=== PATIENT | male | born 1960 | race Caucasian/White ===

== ENCOUNTER 2019-11-27 23:37 | Emergency (ER) | payer MEDICAID ==
[~2019-11-27] VITALS: Ht 182.9 cm; Wt 125.6 kg
[2019-11-27] MEDS ORDERED: metformin PO (23:56)
[2019-11-27] MEDS ORDERED: carvedilol PO (23:56)
[2019-11-27] MEDS ORDERED: PANT40TA49 PO (23:56)
[2019-11-27] MEDS ORDERED: ASPI-1169 PO (23:56)
[2019-11-27] MEDS ORDERED: glipizide PO (23:56)
[2019-11-27] MEDS ORDERED: FURO-152 PO (23:56)
[2019-11-27] MEDS ORDERED: spironolactone PO (23:56)
[2019-11-27] MEDS: MORPHINE SULFATE 4 MG/1 ML DISP.SYRIN IM ONE (23:59)
[2019-11-28] MEDS ORDERED: MORPHINE SULFATE 4 MG/1 ML DISP.SYRIN ONE (00:01)
[2019-11-28 00:33] LABS: BASOPHILS # (AUTO) 0.1 K/uL (0.0-8.0); BASOPHILS % (AUTO) 1.2 % (0.0-2.0); EOSINOPHILS # (AUTO) 1.1 K/uL (0.0-0.7); EOSINOPHILS % (AUTO) 12.2 % (0.0-7.0); HEMATOCRIT 31.9 % (36.7-47.1); HEMOGLOBIN 10.2 g/dL (12.5-16.3); LYMPHOCYTES # (AUTO) 1.3 K/uL (20.0-40.0); LYMPHOCYTES % (AUTO) 14.5 % (20.5-51.5); MEAN CORPUSCULAR HEMOGLOBIN 25.8 uug (23.8-33.4); MEAN CORPUSCULAR HGB CONC 32 g/dL (32.5-36.3); MEAN CORPUSCULAR VOLUME 80.4 fL (73.0-96.2); MONOCYTES # (AUTO) 1.1 K/uL (2.0-10.0); MONOCYTES % (AUTO) 12.3 % (0.0-11.0); NEUTROPHILS # (AUTO) 5.3 K/uL (1.8-8.9); NEUTROPHILS % (AUTO) 59.8 % (38.5-71.5); PLATELET COUNT (AUTO) 84 K/uL (152-348); RED BLOOD CELL COUNT(AUTO) 3.97 MIL/uL (4.06-5.63); WHITE BLOOD COUNT (AUTO) 8.8 K/uL (3.6-10.2)
[2019-11-28 00:39] LABS: BILIRUBIN,DIRECT 0.2 mg/dL (0.0-0.2); BILIRUBIN,TOTAL 0.5 mg/dL (0.2-1.0); CREATININE 1.5 mg/dL (0.6-1.3); POTASSIUM 4.9 mmol/L (3.5-5.1); TOTAL PROTEIN, SERUM 9.4 g/dL (6.4-8.2)
--- NOTE | 2019-11-28 00:46 | NUR ---
Patient discharged to home in stable condition. Written and verbal after care instructions given. Patient verbalizes understanding of instructions. Stressed follow up or return to ER for worsening s/s. Ambulated from ER with stable gait. All belongings with patient . Patient will be driven home by significant other.
[2019-11-28 00:47] VITALS: BP 141/81
[2019-11-28 16:00] LABS: EOSINOPHILS % (MANUAL) 8 % (0-8); LYMPHOCYTES % (MANUAL) 15 % (20-40); MONOCYTES % (MANUAL) 9 % (2-10); NEUTROPHILS % (MANUAL) 68 % (42-75)
== END 2019-11-28 00:47 | disposition home or self-care (01) ==
LOC: ER 23:43
DX: R60.0 Localized edema (principal); I50.9 Heart failure, unspecified; Z79.899 Other long term (current) drug therapy; Z79.82 Long term (current) use of aspirin; R77.8 Other specified abnormalities of plasma proteins; E11.9 Type 2 diabetes mellitus without complications; Z79.84 Long term (current) use of oral hypoglycemic drugs
CPT/HCPCS: 36415; 71045; 80048; 80076; 83880; 84484; 85025; 93005; 96372; 99285; J2270; 70030-TC

== ENCOUNTER 2019-12-17 07:11 | Inpatient (IN) | payer MEDICAID ==
[~2019-12-17] VITALS: Ht 182.9 cm; Wt 75.3 kg
[~2019-12-17 07:11] MED LIST: ASPI-1169 PO; FURO-152 PO; PANT40TA49 PO; carvedilol PO; glipizide PO; metformin PO; spironolactone PO
--- NOTE | 2019-12-17 07:25 | NUR ---
Dr. Soto at bedside for MSE
--- NOTE | 2019-12-17 07:30 | NUR ---
Patient ambulated with steady gait. A&O x4. c/o SOB x2 wks. Patient breathing even and unlabored. no cough noted. Patient states he had a PICC line placed recently and states he was at a hospital recently (patient does not recall which hospital) and was being treated for SOB. Speech is clear and able to make needs known / follow commands. Denies any CP but states "I am in pain all over".
[2019-12-17] MEDS ORDERED: ALBUTEROL SULFATE 8 GM HFA.AER.AD IH PRN (07:45)
[2019-12-17] MEDS ORDERED: NITROGLYCERIN 0.4 MG/TAB BOTTLE SL ONE ×2 (07:45→07:47)
[2019-12-17] MEDS ORDERED: ASPIRIN 325 MG TABLET PO ONE (07:45)
[2019-12-17] MEDS ORDERED: methylPREDNISolone SOD SUCC 125 MG/2 ML VIAL IV ONE (07:45)
[2019-12-17] MEDS ORDERED: ASPIRIN 325 MG TABLET ONE (07:47)
[2019-12-17] MEDS ORDERED: predniSONE 50 MG TABLET ONE (07:58)
[2019-12-17] MEDS ORDERED: predniSONE 10 MG TABLET ONE (07:58)
[2019-12-17] MEDS ORDERED: predniSONE 20 MG TABLET PO ONE (08:00)
[2019-12-17 08:16] LABS: BASOPHILS # (AUTO) 0.1 K/uL (0.0-8.0)
[2019-12-17 08:24] LABS: BASOPHILS % (AUTO) 1.5 % (0.0-2.0); EOSINOPHILS % (AUTO) 12.3 % (0.0-7.0); HEMATOCRIT 28.1 % (36.7-47.1); HEMOGLOBIN 9.2 g/dL (12.5-16.3); LYMPHOCYTES % (AUTO) 12.9 % (20.5-51.5); MEAN CORPUSCULAR HEMOGLOBIN 26.2 uug (23.8-33.4); MEAN CORPUSCULAR HGB CONC 33 g/dL (32.5-36.3); MEAN CORPUSCULAR VOLUME 79.6 fL (73.0-96.2); MONOCYTES % (AUTO) 12.5 % (0.0-11.0); NEUTROPHILS # (AUTO) 4.8 K/uL (1.8-8.9); NEUTROPHILS % (AUTO) 60.8 % (38.5-71.5); PLATELET COUNT (AUTO) 60 K/uL (152-348); RED BLOOD CELL COUNT(AUTO) 3.53 MIL/uL (4.06-5.63); WHITE BLOOD COUNT (AUTO) 7.9 K/uL (3.6-10.2)
[2019-12-17 08:26] LABS: CREATININE 1.1 mg/dL (0.6-1.3); POTASSIUM 5.3 mmol/L (3.5-5.1)
[2019-12-17 08:36] LABS: ETHANOL < 3 MG/DL (0-0)
[2019-12-17 08:42] LABS: BILIRUBIN,DIRECT 0.3 mg/dL (0.0-0.2); BILIRUBIN,TOTAL 0.8 mg/dL (0.2-1.0); TOTAL PROTEIN, SERUM 8.7 g/dL (6.4-8.2)
[2019-12-17 08:46] LABS: *BILIRUBIN,URIN NEGATIVE (NEGATIVE); *BLOOD, URINE NEGATIVE (NEGATIVE); *CLARITY,URINE CLEAR (CLEAR); *COLOR,URINE YELLOW (YELLOW); *KETONES,URINE NEGATIVE (NEGATIVE); *UROBILINOGEN,URINE >=8.0 E.U./dl (NORMAL); LEUKOCYTE ESTERASE ,URINE NEGATIVE (NEGATIVE); NITRITE, URINE NEGATIVE (NEGATIVE); PH,URINE 7.5 (5.0-8.0); UGLUCOSE NEGATIVE (NEGATIVE)
[2019-12-17 08:57] LABS: *AMPHETAMINE, URINE NEGATIVE (NEGATIVE); *CANNABINOID, URINE NEGATIVE (NEGATIVE); *COCCAINE, URINE NEGATIVE (NEGATIVE); *OPIATE, URINE POSITIVE (NEGATIVE); *PHENCYCLIDINE SCREEN,URINE NEGATIVE (NEGATIVE)
[2019-12-17] MEDS ORDERED: FUROSEMIDE 40 MG TABLET PO SCH (09:00)
[2019-12-17] MEDS ORDERED: ENOXAPARIN SODIUM 100 MG/ML DISP.SYRIN SQ ONE ×2 (09:00→09:34)
[2019-12-17] MEDS ORDERED: CLOPIDOGREL 75 MG TABLET PO ONE (09:00)
--- NOTE | 2019-12-17 09:06 | NUR ---
Attempted x3 to place a HL on pt, unable to, made aware.
--- NOTE | 2019-12-17 09:20 | NUR ---
Spoke to Jennifer, nursing sup, she was not able to get a call back from PICC line nurses. Dr Soto made aware.
[2019-12-17] MEDS ORDERED: IOHEXOL 350 100 ML INFUS..BTL ONE (09:23)
[2019-12-17] MEDS ORDERED: SWABABLE VALVE TRANSFER SET EA MC ONE (09:23)
[2019-12-17] MEDS ORDERED: IV NORMAL SALINE 250 ML IV ONE (09:23)
--- NOTE | 2019-12-17 09:23 | NUR ---
U/S tech at the bedside.
[2019-12-17] MEDS ORDERED: FUROSEMIDE 20 MG TABLET ONE (09:32)
[2019-12-17] MEDS ORDERED: CLOPIDOGREL 75 MG TABLET ONE (09:33)
[2019-12-17] MEDS ORDERED: ENOXAPARIN SODIUM 30 MG/0.3 ML DISP.SYRIN ONE ×2 (09:34→09:36)
[2019-12-17 10:00] LABS: BACTERIA,URINE NONE SEEN /HPF (NONE SEEN); RBC,URINE 0-3 /HPF (0-3); SQUAMOUS EPITHELIAL CELL,UR FEW /HPF (NONE SEEN); WBC,URINE 0-3 /HPF (0-3)
[2019-12-17] MEDS ORDERED: TAMS-3 PO (10:33)
[2019-12-17] MEDS ORDERED: FAMO-132 PO (10:33)
[2019-12-17] MEDS ORDERED: HYDR-4384 PO (10:33)
[2019-12-17] MEDS ORDERED: THIA100T70 PO (10:33)
[2019-12-17] MEDS ORDERED: MULT-594 PO (10:33)
[2019-12-17] MEDS ORDERED: EPIN0.3A4 IM (10:33)
[2019-12-17] MEDS ORDERED: GABA600T12 PO (10:33)
--- NOTE | 2019-12-17 10:35 | NUR ---
CALLED [facility] FOR PANEL CALL
[2019-12-17] MEDS ORDERED: QUET50TA PO (10:44)
[2019-12-17] MEDS ORDERED: ONDANSETRON 4 MG/2 ML VIAL IV PRN (11:00)
[2019-12-17] MEDS ORDERED: MAGNESIUM HYDROXIDE 30 ML LIQUID UDC PO PRN (11:00)
[2019-12-17] MEDS ORDERED: Z GUARD REMEDY PASTE 57 GM TUBE TOP PRN (11:00)
[2019-12-17] MEDS ORDERED: ACETAMINOPHEN 325 MG TABLET PO PRN (11:00)
--- NOTE | 2019-12-17 11:03 | NUR ---
Pt signed consent for IV contrasted CTA, placed in the chart.
--- NOTE | 2019-12-17 11:04 | NUR ---
Pt out of ER for CT.
--- NOTE | 2019-12-17 11:10 | NUR ---
Pt. admitted to Telemetry , under care of Dr. Felix Belongs List completed
--- NOTE | 2019-12-17 12:06 | NUR ---
Report given to Katherine CORREA
--- NOTE | 2019-12-17 13:15 | NUR ---
RECEIVED PATIENT AWAKE, ALERT AND ORIENTED X 4 FROM THE ED VIA [employer]. SR ON MONITOR - 70'S HR. COMPLAINS OF SOB AND OVER ALL BODY PAIN. ON 2L NC, 97-98% SATURATION. PAIN MEDICATION GIVEN ORDERED. WILL NOTIFY RT FOR PRN BREATHING TREATMENT. 3 LUMEN PICC LINE ON LEFT UPPER ARM, FLUSHED AND PATENT. SAFETY PRECAUTIONS IN PLACE. MD NOTIFIED OF PATIENT ARRIVAL. ENCOURAGE FLUID RESTRICTION S/T HYPONATREMIA AND CHF EXACERBATION. WILL CONTINUE TO MONITOR.
[2019-12-17 13:50] VITALS: BP 128/81
[2019-12-17] MEDS ORDERED: AZITHROMYCIN 250 MG TABLET PO ONE (14:00)
[2019-12-17] MEDS: HYDROCODONE/APAP 5-325MG TABLET PO PRN ×2 (14:07→21:17)
[2019-12-17] MEDS: ALBUTEROL SULFATE 2.5 MG/3 ML NEBU NEB PRN ×3 (14:47→23:18)
[2019-12-17] MEDS: IPRATROPIUM BROMIDE 0.5 MG/2.5 ML NEBU NEB PRN ×3 (14:47→23:18)
--- NOTE | 2019-12-17 15:15 | NUR ---
NOTIFIED DR. GLASGOW THAT PATIENT IS COMPLAINING OF CHEST PAIN AND SOB. LET HIM KNOW THAT NORCO WAS GIVEN ORDERED AND THAT A BREATHING TREATMENT IS TO BE GIVEN. NO ORDERS GIVEN.
[2019-12-17 15:25] LABS: EOSINOPHILS % (MANUAL) 7 % (0-8); LYMPHOCYTES % (MANUAL) 12 % (20-40); MONOCYTES % (MANUAL) 8 % (2-10); NEUTROPHILS % (MANUAL) 73 % (42-75)
[2019-12-17 16:00] VITALS: BP 137/75
[2019-12-17] MEDS ORDERED: FAMOTIDINE 20 MG TABLET PO SCH (17:00)
[2019-12-17] MEDS: METFORMIN HCL 500 MG TABLET PO SCH (17:09)
[2019-12-17] MEDS: GABAPENTIN 300 MG CAPSULE PO SCH (17:09)
[2019-12-17] MEDS: glipiZIDE 10 MG TABLET PO SCH (17:09)
[2019-12-17] MEDS: CARVEDILOL 25 MG TABLET PO SCH (17:15)
--- NOTE | 2019-12-17 19:43 | NUR ---
Doctor was notified of Troponin level. Levels are trending down. Orders to continue to monitor.
--- NOTE | 2019-12-17 19:45 | NUR ---
MESSAGED DR GLASGOW ABOUT ELEVATED TROPONIN LEVEL. ENDORSED TO CHEMOTHERAPIST TO FOLLOW UP.
[2019-12-17 20:02] VITALS: BP 141/74
--- NOTE | 2019-12-17 20:26 | NUR ---
Patient has platelets of 60. Pharmacy called to confirm Lovenox 120mg order and stated to call doctor. Doctor Melyssan notified and stated okay to give.
--- NOTE | 2019-12-17 21:00 | NUR ---
Patient awake and alert in bed. No s/s of respiratory distress. On 2L/min. Patient reported chest pain when coughing 7/10 and given [place] at 2117. Patient tolerated medication well. Bed is locked and in lowest position. Will continue to monitor.
[2019-12-17] MEDS: ENOXAPARIN SODIUM 60 MG/0.6 ML DISP.SYRIN SQ SCH (21:16)
[2019-12-17] MEDS: QUETIAPINE FUMARATE 25 MG TABLET PO PRN (22:54)
--- NOTE | 2019-12-17 22:54 | NUR ---
Per patient's request, Seroquel was given to help patient sleep. Patient tolerated medication well.
[2019-12-18 00:07] VITALS: BP 136/47
[2019-12-18] MEDS: IPRATROPIUM BROMIDE 0.5 MG/2.5 ML NEBU NEB PRN ×3 (03:28→10:57)
[2019-12-18] MEDS: ALBUTEROL SULFATE 2.5 MG/3 ML NEBU NEB PRN ×3 (03:28→10:57)
[2019-12-18 04:00] VITALS: BP 137/75
--- NOTE | 2019-12-18 05:59 | NUR ---
Patient slept throughout the night with no complaints. No s/s of pain throughout the night. On 2L NC. Breathing tx given Q4H but patient still has a cough. Bed is locked and in lowest position. Side rails up X 2. Will endorse to day shift.
[2019-12-18] MEDS: HYDROCODONE/APAP 5-325MG TABLET PO PRN ×2 (06:23→16:22)
--- NOTE | 2019-12-18 06:30 | NUR ---
Attempted to clean up the clutter in patient's room, he declined.
--- NOTE | 2019-12-18 07:45 | NUR ---
RECEIVED PATIENT ASLEEP IN BED, EASILY AROUSABLE, ORIENTED X 4. ON 2L NC, SATURATION WNL. CONTINENT OF B/B. ABLE TO AMBULATE TO BATHROOM. 3 LUMEN PICC ON LEFT UPPER ARM - FLUSHED AND PATENT. SAFETY PRECAUTIONS IN PLACE. WILL CONTINUE TO MONITOR.
--- NOTE | 2019-12-18 08:30 | NUR ---
PLATELET LEVEL AT 61. LOVENOX STILL GIVEN PER PUG MACHINE OPERATOR NOTES. MD NOTIFIED OF PLATELET LEVEL AND OKAY ADMINISTRATION OF LOVENOX. NO S/S OF BLEEDING NOTED AT THIS TIME.
[2019-12-18 08:44] LABS: BASOPHILS # (AUTO) 0.1 K/uL (0.0-8.0); BASOPHILS % (AUTO) 0.7 % (0.0-2.0); EOSINOPHILS # (AUTO) 0.2 K/uL (0.0-0.7); EOSINOPHILS % (AUTO) 2.2 % (0.0-7.0); HEMATOCRIT 27.8 % (36.7-47.1); HEMOGLOBIN 8.9 g/dL (12.5-16.3); LYMPHOCYTES # (AUTO) 1.3 K/uL (20.0-40.0); LYMPHOCYTES % (AUTO) 16.1 % (20.5-51.5); MEAN CORPUSCULAR HGB CONC 32 g/dL (32.5-36.3); MEAN CORPUSCULAR VOLUME 80.8 fL (73.0-96.2); MONOCYTES % (AUTO) 12.6 % (0.0-11.0); NEUTROPHILS # (AUTO) 5.5 K/uL (1.8-8.9); NEUTROPHILS % (AUTO) 68.4 % (38.5-71.5); PLATELET COUNT (AUTO) 61 K/uL (152-348); RED BLOOD CELL COUNT(AUTO) 3.44 MIL/uL (4.06-5.63); WHITE BLOOD COUNT (AUTO) 8.1 K/uL (3.6-10.2)
[2019-12-18 08:51] LABS: CREATININE 1.3 mg/dL (0.6-1.3); MAGNESIUM 2.3 mg/dL (1.8-2.4); PHOSPHOROUS 3.4 mg/dL (2.5-4.9); POTASSIUM 3.9 mmol/L (3.5-5.1)
[2019-12-18] MEDS ORDERED: SPIRONOLACTONE 25 MG TABLET PO SCH (09:00)
[2019-12-18] MEDS ORDERED: ASPIRIN 81 MG TAB.CHEW PO SCH (09:00)
[2019-12-18] MEDS ORDERED: methylPREDNISolone SOD SUCC 125 MG/2 ML VIAL IV SCH (09:00)
[2019-12-18] MEDS: TAMSULOSIN HCL 0.4 MG CAP.SR.24H PO SCH (09:01)
[2019-12-18] MEDS: glipiZIDE 10 MG TABLET PO SCH ×2 (09:01→17:13)
[2019-12-18] MEDS: PANTOPRAZOLE SODIUM 40 MG TABLET.DR PO SCH (09:01)
[2019-12-18] MEDS: FUROSEMIDE 40 MG/4 ML VIAL IV SCH (09:02)
[2019-12-18] MEDS: METFORMIN HCL 500 MG TABLET PO SCH ×2 (09:02→17:13)
[2019-12-18] MEDS: GABAPENTIN 300 MG CAPSULE PO SCH ×2 (09:02→16:22)
[2019-12-18] MEDS: CARVEDILOL 25 MG TABLET PO SCH ×2 (09:03→16:25)
[2019-12-18] MEDS: THIAMINE HCL 100 MG TABLET PO SCH (09:03)
[2019-12-18] MEDS: MULTIVITAMINS,THERAPEUTIC TABLET PO SCH (09:03)
[2019-12-18] MEDS: ENOXAPARIN SODIUM 60 MG/0.6 ML DISP.SYRIN SQ SCH ×2 (09:07→20:55)
[2019-12-18 11:30] VITALS: BP 121/86
[2019-12-18] MEDS ORDERED: IPRATROPIUM/ALBUTEROL SULFATE 14.7 GM INHALER INH SCH (11:30)
[2019-12-18] MEDS: IPRATROPIUM BROMIDE 0.5 MG/2.5 ML NEBU NEB SCH ×3 (11:30→19:22)
[2019-12-18] MEDS: ALBUTEROL SULFATE 2.5 MG/ 0.5 ML NEBU NEB SCH ×3 (11:30→19:21)
[2019-12-18 13:37] LABS: BAND % (MANUAL) 2 % (0-10); LYMPHOCYTES % (MANUAL) 20 % (20-40); MONOCYTES % (MANUAL) 2 % (2-10)
[2019-12-18 13:38] LABS: EOSINOPHILS % (MANUAL) 2 % (0-8); NEUTROPHILS % (MANUAL) 74 % (42-75)
[2019-12-18] MEDS: AZITHROMYCIN 250 MG TABLET PO SCH (13:42)
[2019-12-18 16:00] VITALS: BP 121/64
--- NOTE | 2019-12-18 16:47 | NUR ---
PATIENT COMPLAINING OF PAIN AND COUGHING. GIVEN NORCO PRESCRIBED. PAGED DR JEAN.
--- NOTE | 2019-12-18 18:24 | NUR ---
PATIENT COMPLAINING OF PAIN. STATES THAT NORCO HAS BEEN INEFFECTIVE. PAGED MD AGAIN TO NOTIFY OF PATIENT STATUS.
--- NOTE | 2019-12-18 18:40 | NUR ---
DR JEAN CALLED BACK REGARDING NEED OF PATIENT FOR COUGH AND STRONGER PAIN MEDS "WILL REVIEW CHART AND PUT ORDERS."
--- NOTE | 2019-12-18 19:00 | NUR ---
Patient received from AM nurse. Upon assessment of patient, no abnormal findings documented relative to this patient. HOB elevated. No reports of pain, no distress. Patient confirmed that he needs medications for his cough, will contact doctor. Will continue to monitor and assess.
[2019-12-18 20:54] VITALS: BP 151/92
--- NOTE | 2019-12-18 21:00 | NUR ---
Pt given his routine dose of Enoxaparin. Labs checked, was told by AM nurse that doctors were notified of low Platelet count, and were given orders to continue his normal dose.
--- NOTE | 2019-12-18 23:00 | NUR ---
Received phone orders from Dr. Cuevas. Robitussin 15mL Q4H for Cough & Solumedrol 60mg IV Q8H. The Solumedrol order was an adjustment to a previous dose of the same medication. Will enter orders.
[2019-12-18] MEDS: GUAIFENESIN SUGAR FREE 100 MG/5 ML UDC PO PRN (23:24)
[2019-12-18] MEDS: methylPREDNISolone SOD SUCC 125 MG/2 ML VIAL IV SCH (23:24)
--- NOTE | 2019-12-18 23:39 | NUR ---
New medications have been given. Will continue to monitor and assess.
[2019-12-19 00:54] VITALS: BP 150/74
[2019-12-19] MEDS: ALBUTEROL SULFATE 2.5 MG/3 ML NEBU NEB PRN (01:47)
[2019-12-19] MEDS: IPRATROPIUM BROMIDE 0.5 MG/2.5 ML NEBU NEB PRN (01:47)
--- NOTE | 2019-12-19 02:00 | NUR ---
Requested that RT come up and do a breathing treatment for patient. RT responded that he will follow up and do treatment. RT therapist
--- NOTE | 2019-12-19 02:01 | NUR ---
RT came up and did respiratory treatment at 0147. Patient states that he "feels better". Will continue to monitor and assess.
[2019-12-19] MEDS: QUETIAPINE FUMARATE 25 MG TABLET PO PRN ×2 (02:34→21:28)
[2019-12-19 04:50] VITALS: BP 145/64
[2019-12-19] MEDS: methylPREDNISolone SOD SUCC 125 MG/2 ML VIAL IV SCH (05:11)
--- NOTE | 2019-12-19 06:17 | NUR ---
Pt has been sleeping intermittently throughout the night. No reports of pain, no distress, VSS, HOB elevated, no SOB, on 2L of O2 via Nasal Canal. PICC line patent Will endorse to oncoming nurse.
[2019-12-19 06:51] LABS: CREATININE 1.4 mg/dL (0.6-1.3); MAGNESIUM 2.2 mg/dL (1.8-2.4); PHOSPHOROUS 2.6 mg/dL (2.5-4.9); POTASSIUM 5.1 mmol/L (3.5-5.1); URIC ACID 7.6 mg/dL (3.5-7.2)
--- NOTE | 2019-12-19 07:05 | NUR ---
Report given to am nurse. Made aware of most recent critical lab value of patient (1.4 albumin). VSS. No reports of pain. Endorsed change of shift report. Addendum: 12/19/19 at 2207 by BILL DOMINGUEZ RN WRONG PATIENT
[2019-12-19 07:30] LABS: THYROID STIMULATING HORMONE 0.27 mIU/mL (0.358-3.740)
[2019-12-19] MEDS ORDERED: INSULIN REGULAR, HUMAN 300 UNITS/3 ML VIAL SQ PRN (07:45)
[2019-12-19] MEDS ORDERED: DEXTROSE 50% 50 ML DISP.SYRIN IV PRN (07:45)
[2019-12-19] MEDS: BLOOD SUGAR DIAGNOSTIC 1 EACH STRIP VI SCH ×4 (07:50→21:36)
[2019-12-19] MEDS: IPRATROPIUM BROMIDE 0.5 MG/2.5 ML NEBU NEB SCH ×4 (07:58→21:30)
[2019-12-19] MEDS: INSULIN REGULAR, HUMAN 300 UNIT/3 ML VIAL SQ PRN ×3 (07:58→16:18)
[2019-12-19] MEDS: ALBUTEROL SULFATE 2.5 MG/ 0.5 ML NEBU NEB SCH ×4 (07:58→21:30)
[2019-12-19] MEDS: glipiZIDE 10 MG TABLET PO SCH ×2 (08:02→18:01)
[2019-12-19] MEDS: TAMSULOSIN HCL 0.4 MG CAP.SR.24H PO SCH (08:02)
[2019-12-19] MEDS: GABAPENTIN 300 MG CAPSULE PO SCH ×2 (08:02→16:00)
[2019-12-19] MEDS: PANTOPRAZOLE SODIUM 40 MG TABLET.DR PO SCH (08:02)
[2019-12-19] MEDS: MULTIVITAMINS,THERAPEUTIC TABLET PO SCH (08:02)
[2019-12-19] MEDS: FUROSEMIDE 40 MG/4 ML VIAL IV SCH (08:03)
[2019-12-19] MEDS: METFORMIN HCL 500 MG TABLET PO SCH ×2 (08:03→18:01)
[2019-12-19] MEDS: THIAMINE HCL 100 MG TABLET PO SCH (08:03)
[2019-12-19] MEDS: CARVEDILOL 25 MG TABLET PO SCH ×2 (08:04→16:01)
[2019-12-19] MEDS: ENOXAPARIN SODIUM 60 MG/0.6 ML DISP.SYRIN SQ SCH ×2 (08:09→21:18)
[2019-12-19 08:12] LABS: ABG BASE EXCESS -2.4 mmol/L; ABG HCO3 22.7 mmol/L; ABG PCO2 40.2 mmHg (35.0-45.0); ABG PH 7.369 (7.350-7.450); ABG PO2 72.7 mmHg (75.0-100.0); ABG SITE RIGHT RADIAL; ABG TOTAL HEMOGLOBIN 10.4 G/dL (13.5-18.0); COHb 1.1 % (0.5-1.5); MetHb 0.1 % (0.0-1.5); O2Hb 92.7 % (94.0-97.0); VENT MODE Nasal Cannula
--- NOTE | 2019-12-19 09:40 | NUR ---
patient is alert, oriented x4, verbally responsive, sob upon exertion, fasting blood sugar high, however no fruity breath noted, reported to MD with order to start on aggressive sliding scale, order noted, patient noted eating his own food, cookies, watermelon, crackers,education provided to patient regarding foods, noncompliant patient stated he would eat it anyway, patient made aware about his blood sugar levels, patient understood the blood sugar levels are high, however does not want to follow diet plan. diet changed to 60gm controlled carbohydrates. able to ambulate independently with mild to moderate sob upon exertion, saturating at 93-95 at 2 liter nasal canula.
[2019-12-19] MEDS: HYDROCODONE/APAP 5-325MG TABLET PO PRN ×3 (10:09→23:24)
[2019-12-19] MEDS: GUAIFENESIN SUGAR FREE 100 MG/5 ML UDC PO PRN ×3 (10:11→21:19)
--- NOTE | 2019-12-19 11:28 | NUR ---
before lunch blood sugar 549, no other symptoms noted, MD Chin made aware.
[2019-12-19 11:30] VITALS: BP 140/70
[2019-12-19] MEDS: AZITHROMYCIN 250 MG TABLET PO SCH (13:24)
[2019-12-19] MEDS ORDERED: methylPREDNISolone SOD SUCC 40 MG/ML VIAL IV SCH (14:00)
[2019-12-19 15:35] VITALS: BP 116/69
--- NOTE | 2019-12-19 19:00 | NUR ---
Received patient from AM nurse. Patient resting in bed. Assessed patient, no reports of pain. Bed at lowest position, O2 running @2L via nasal canula, HOB elevated, call light within reach, bed alarm on. Will continue to assess and monitor.
--- NOTE | 2019-12-19 19:45 | NUR ---
Pt consistently removes his Nasal Canula. Educated as to its importance and how he NEEDs to keep it on. Will continue to monitor, assess, and educate.
[2019-12-19 20:00] VITALS: BP 118/67
--- NOTE | 2019-12-19 20:00 | NUR ---
Teaching done to patient about the importance of following his diet and portion control. Also made him aware of the fluid restriction orders he has. Patient does not seem to adhere to a well balanced diet, nor care much about fluid restrictions. Will continue to assess and monitor.
[2019-12-19] MEDS: methylPREDNISolone SOD SUCC 40 MG/ML VIAL IV SCH (21:19)
--- NOTE | 2019-12-19 21:54 | NUR ---
Pts accucheck came back with a bloodsugar of 438. Administered 10 Units Insulin per aggressive sliding scale. Notified Pinky Valladares NP and was given an order of an additional "6 Units more and recheck in 15 minutes". I put the order in and will wait for verification. Will continue to monitor and assess patient.
[2019-12-19] MEDS ORDERED: INSULIN REGULAR, HUMAN 300 UNIT/3 ML VIAL SQ ONE (22:00)
--- NOTE | 2019-12-19 22:48 | NUR ---
Called pharmacy to get insulin verified more rapidly. Insulin was verified soon after and 6 Units were administered per [facility] orders. Will continue to monitor and assess.
--- NOTE | 2019-12-19 22:49 | NUR ---
Pts bloodsugar was 400 after the 6 additional units administered. Pinky Valladares made aware. She will order Lantus for him. Patient is extremely non-compliant with his diet and medication regimen.
[2019-12-19] MEDS ORDERED: INSULIN GLARGINE,HUM 300 UNITS/3 ML CARTRIDGE SQ SCH (23:00)
--- NOTE | 2019-12-19 23:48 | NUR ---
Pt reports severe pain. He is moaning loud enough that almost the whole floor can hear him. When assessed he says "i need something stronger that norco". Asked Pinky Valladares for a prescription and was given Dilaudid 1mg ONCE. Will assess patient response to given norco before giving x1 Dilaudid dose.
--- NOTE | 2019-12-19 23:49 | NUR ---
Received order of 8 units Lantus from [facility]. Administered at 2340 immediately after it was verified by the Pharmacy. Will continue to monitor and assess.
[2019-12-20] MEDS ORDERED: HYDROMORPHONE 1 MG/1 ML DISP.SYRIN IV PRN
--- NOTE | 2019-12-20 00:36 | NUR ---
Pt still in sever pain according to his moaning and self report of pain. Dilaudid given. Respirations were 20 prior to administration saturation 98%. Will continue to assess and monitor patients response.
--- NOTE | 2019-12-20 01:00 | NUR ---
Pt sound asleep after administering single dose of Dilaudid. Patient made aware prior to administration that it was a one time order. His normal [place] is still the PRN medication. VSS. NO signs of distress. Will continue to monitor and assess.
[2019-12-20 04:06] VITALS: BP 122/62
--- NOTE | 2019-12-20 05:33 | NUR ---
Pt sound asleep but awakens easily to name and stimuli. Reports feeling "much better". VSS. Will continue to monitor and assess.
--- NOTE | 2019-12-20 06:33 | NUR ---
Pt slept soundly throughout the night after receiving the new Dilaudid order. Pts vital signs are stable, BS is trending downward at 317. Will endorse to AM nurse.
[2019-12-20 06:46] LABS: BASOPHILS % (AUTO) 0.1 % (0.0-2.0); EOSINOPHILS % (AUTO) 0.1 % (0.0-7.0); HEMATOCRIT 28.8 % (36.7-47.1); HEMOGLOBIN 9.1 g/dL (12.5-16.3); LYMPHOCYTES # (AUTO) 0.5 K/uL (20.0-40.0); LYMPHOCYTES % (AUTO) 4.4 % (20.5-51.5); MEAN CORPUSCULAR HEMOGLOBIN 25.8 uug (23.8-33.4); MEAN CORPUSCULAR HGB CONC 32 g/dL (32.5-36.3); MEAN CORPUSCULAR VOLUME 81.4 fL (73.0-96.2); MONOCYTES # (AUTO) 0.7 K/uL (2.0-10.0); NEUTROPHILS # (AUTO) 10.9 K/uL (1.8-8.9); NEUTROPHILS % (AUTO) 89.4 % (38.5-71.5); PLATELET COUNT (AUTO) 82 K/uL (152-348); RED BLOOD CELL COUNT(AUTO) 3.53 MIL/uL (4.06-5.63); WHITE BLOOD COUNT (AUTO) 12.2 K/uL (3.6-10.2)
[2019-12-20 06:56] LABS: BILIRUBIN,TOTAL 0.5 mg/dL (0.2-1.0); CREATININE 1.3 mg/dL (0.6-1.3); MAGNESIUM 2.3 mg/dL (1.8-2.4); PHOSPHOROUS 4.1 mg/dL (2.5-4.9); POTASSIUM 5.4 mmol/L (3.5-5.1); TOTAL PROTEIN, SERUM 8.5 g/dL (6.4-8.2)
[2019-12-20] MEDS: BLOOD SUGAR DIAGNOSTIC 1 EACH STRIP VI SCH (07:31)
[2019-12-20] MEDS: INSULIN REGULAR, HUMAN 300 UNIT/3 ML VIAL SQ PRN (07:49)
[2019-12-20 07:51] VITALS: BP 122/62
[2019-12-20] MEDS: GABAPENTIN 300 MG CAPSULE PO SCH (07:51)
[2019-12-20] MEDS: THIAMINE HCL 100 MG TABLET PO SCH (07:51)
[2019-12-20] MEDS: CARVEDILOL 25 MG TABLET PO SCH (07:51)
[2019-12-20] MEDS: METFORMIN HCL 500 MG TABLET PO SCH (07:52)
[2019-12-20] MEDS: PANTOPRAZOLE SODIUM 40 MG TABLET.DR PO SCH (07:52)
[2019-12-20] MEDS: MULTIVITAMINS,THERAPEUTIC TABLET PO SCH (07:52)
[2019-12-20] MEDS: ENOXAPARIN SODIUM 60 MG/0.6 ML DISP.SYRIN SQ SCH (07:52)
[2019-12-20] MEDS: glipiZIDE 10 MG TABLET PO SCH (07:52)
[2019-12-20] MEDS: TAMSULOSIN HCL 0.4 MG CAP.SR.24H PO SCH (07:52)
[2019-12-20] MEDS: FUROSEMIDE 40 MG/4 ML VIAL IV SCH (08:15)
[2019-12-20] MEDS: methylPREDNISolone SOD SUCC 40 MG/ML VIAL IV SCH (08:15)
[2019-12-20] MEDS: ALBUTEROL SULFATE 2.5 MG/ 0.5 ML NEBU NEB SCH (08:36)
[2019-12-20] MEDS: IPRATROPIUM BROMIDE 0.5 MG/2.5 ML NEBU NEB SCH (08:36)
[2019-12-20] MEDS ORDERED: INSULIN REGULAR, HUMAN 300 UNITS/3 ML VIAL SQ PRN (09:00)
[2019-12-20] MEDS ORDERED: INSULIN REGULAR, HUMAN 300 UNIT/3 ML VIAL SQ PRN (09:00)
[2019-12-20] MEDS ORDERED: DEXTROSE 50% 50 ML DISP.SYRIN IV PRN (09:00)
--- NOTE | 2019-12-20 09:30 | NUR ---
PICC LINE DC'D. LINE REMOVED INTACT. PRESSURE DSG. APPLIED. PREPATED FOR DISCHARGE.
--- NOTE | 2019-12-20 10:42 | NUR ---
dc orders received noted and carried out,dc instruction and education given to the pt.dc piccline per md orders,pt left the facility via private car in stable condition
[2019-12-20] MEDS ORDERED: BLOOD SUGAR DIAGNOSTIC 1 EACH STRIP VI SCH (11:30)
[2019-12-20] MEDS ORDERED: predniSONE 20 MG TABLET PO SCH (18:00)
[2019-12-20] MEDS ORDERED: INSULIN GLARGINE,HUM 300 UNITS/3 ML CARTRIDGE SQ SCH (21:00)
== END 2019-12-20 10:40 | disposition home or self-care (01) | DRG 134 ==
LOC: ER 07:11 → TELE3 11:58 → MEDSURG3 12-19 13:08
PROVIDERS: ADMIT Family Medicine; ATTEND Internal Medicine
PROC: B548ZZA Ultrasonography of Superior Vena Cava, Guidance (ICD-10-PCS; principal; 2019-12-17)
PROC: 02HV33Z Insertion of Infusion Device into Superior Vena Cava, Percutaneous Approach (ICD-10-PCS; principal; 2019-12-17)
DX: I26.99 Other pulmonary embolism without acute cor pulmonale (principal); I11.0 Hypertensive heart disease with heart failure; I21.A1 Myocardial infarction type 2; I50.33 Acute on chronic diastolic (congestive) heart failure; Z95.5 Presence of coronary angioplasty implant and graft; I82.432 Acute embolism and thrombosis of left popliteal vein; D63.8 Anemia in other chronic diseases classified elsewhere; E43 Unspecified severe protein-calorie malnutrition; E66.9 Obesity, unspecified; E78.5 Hyperlipidemia, unspecified; E87.1 Hypo-osmolality and hyponatremia; E87.5 Hyperkalemia; I25.10 Atherosclerotic heart disease of native coronary artery without angina pectoris; K74.60 Unspecified cirrhosis of liver; Z87.891 Personal history of nicotine dependence; Z87.442 Personal history of urinary calculi; Z86.711 Personal history of pulmonary embolism; Z79.01 Long term (current) use of anticoagulants; Z95.2 Presence of prosthetic heart valve; D69.59 Other secondary thrombocytopenia; E88.09 Other disorders of plasma-protein metabolism, not elsewhere classified; R59.0 Localized enlarged lymph nodes; J98.11 Atelectasis; K76.6 Portal hypertension; Z91.14 Patient's other noncompliance with medication regimen; I82.621 Acute embolism and thrombosis of deep veins of right upper extremity; N17.9 Acute kidney failure, unspecified; D68.9 Coagulation defect, unspecified; J44.1 Chronic obstructive pulmonary disease with (acute) exacerbation; E11.65 Type 2 diabetes mellitus with hyperglycemia; I82.453 Acute embolism and thrombosis of peroneal vein, bilateral; Z68.22 Body mass index [BMI] 22.0-22.9, adult; Z85.118 Personal history of other malignant neoplasm of bronchus and lung
CPT/HCPCS: 36415; 36600; 70030-TC; 71045; 71275; 83735; 84100; 84443; 84550; 85025; 85730; 93005; 93307; 94640; 94664; A4663; G0378; G0480; J1170; J1650; J1815; J1940; J2920; J2930; J3535; J3590; J7050; J7512; Q0144; Q9967